=== PATIENT | female | born 1995 | race African-American/Black ===

== ENCOUNTER 2016-10-13 17:19 | Emergency (ER) | payer OTHER ==
[~2016-10-13] VITALS: Ht 170.2 cm; Wt 53.2 kg
[2016-10-13 17:26] VITALS: BP 127/81; PULSE 89; TEMP 37.3; O2SAT 99; Ht 170.2 cm; Wt 53.2 kg
--- NOTE | 2016-10-13 18:47 | EMERGENCY ROOM VISIT NOTE ---
History First contact with patient: 17:34 Chief Complaint: OTHER COMPLAINT Stated Complaint: BURNING SCALP, HAIR LOSS History of Present Illness The patient is a 20 year old female who presents to the Emergency Room with complaints of hair loss over the past few weeks. The patient reports a burning and itching sensation on her scalp. 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 She denies using any new hair products recently. She denies any prior history of eczema or other significant skin conditions. She does report having a prior history of hair loss several years ago. The patient does not know if she has insurance, and currently does not have a PCP. Review of Systems 10 system review was performed and was negative except for pertinent positives and negatives as indicated in history of present illness Past Medical/Surgical History Medical Problems: (1) Diffus Cystic Mastopathy Surgical Problems: (1) No history of previous surgery Family History FH: cancer FH: diabetes mellitus FH: heart disease Social History Smoking Status: Never Smoker Alcohol Use: none Drug Use: none Marital Status: single Housing Status: lives with family Occupation Status: student Current/Historical Medications No Active Prescriptions or Reported Meds Allergies Coded Allergies: No Known Allergies (Unverified , 10/13/16) Physical Exam Vital Signs Date Time Temp Pulse Resp B/P Pulse Ox O2 Delivery O2 Flow Rate FiO2 10/13/16 17:26 37.3 89 17 127/81 99 Room Air Pain Rating (0-10): 0 Physical Exam CONSTITUTIONAL: Healthy and well nourished. Alert and oriented X 3 with positive affect. HEENT: Normocephalic, atraumatic. Pupils equal, round and reactive. Examination of the scalp does not show any notable scalp edema, erythema or scaling. She has a couple patches behind both ears. There does not appear to be any facial rash. Ears and nares are clear. OROPHARYNX: No posterior pharyngeal erythema, tonsillar hypertrophy or exudates. NECK: Full active range of motion without discomfort. LYMPHATICS: No cervical chain adenopathy. RESPIRATORY: Clear to auscultation bilaterally with no wheezing, crackles, rhonchi or stridor. CARDIOVASCULAR: Regular rate and rhythm with no murmurs, rubs or gallops. INTEGUMENTARY: No other rashes or other significant dermatologic conditions noted except as indicated in the previous HEENT section. NEUROLOGIC: No focal neurologic deficits noted. Medical Decision & Procedures ED Course Patient history and physical exam were performed. Nurse's notes were reviewed. The patient was encouraged to follow-up with a diesel locomotive engineer for further workup. Regarding the patient's insurance, she was encouraged to speak with her parents and have them contact their insurance provider as the patient likely is covered under her parents insurance. She was also encouraged to find out if she needs a referral to see a diesel locomotive engineer. She was provided contact information for Dr. Pisano that she may also call if her insurance is accepted at [facility]. The patient was happy with plan care, and voiced understanding of all discharge instructions. Medical Decision Impression Primary Impression: Hair loss Departure Information Dispostion Home / Self-Care Condition GOOD Prescriptions No Active Prescriptions or Reported Meds Referrals Brandyn Pisano M.D. Forms HOME CARE DOCUMENTATION FORM, IMPORTANT VISIT INFORMATION Patient Instructions A Signature Page, My [facility] Additional Instructions Check with your parents insurance as you are likely covered under their insurance plan. Have them call the insurance plan to see if you need a referral to a diesel locomotive engineer. If you do, he will have to follow-up with your family doctor for this referral. If not, you may contact a diesel locomotive engineer directly.
== END 2016-10-13 17:58 | disposition home or self-care (01) ==
LOC: C.EDB 17:20 → C.EDD 17:58
DX: L65.9 Nonscarring hair loss, unspecified (principal)

== ENCOUNTER 2017-06-16 14:56 | Emergency (ER) | payer OTHER ==
[~2017-06-16] VITALS: Ht 170.2 cm; Wt 58.4 kg
[2017-06-16 14:58] VITALS: TEMP 37.2; Ht 170.2 cm; Wt 58.4 kg
[2017-06-16] MEDS ORDERED: ONDANSETRON INJ 2 MG/ML 2 ML VIAL IV STA (15:20)
[2017-06-16] MEDS ORDERED: SODIUM CHLORIDE 0.9% 1000ML 1,000 ML IV STA (15:20)
[2017-06-16 15:37] LABS: URINE APPEARANCE CLOUDY (CLEAR); URINE BILIRUBIN NEG (NEG); URINE COLOR YELLOW; URINE EPITHELIAL CELL AUTO >30 /lpf (0-5); URINE NITRITE NEG (NEG); URINE PH 5.5 (4.5-7.5); URINE SPECIFIC GRAVITY 1.017 (1.000-1.030); UROBILINOGEN NEG (NEG)
[2017-06-16 15:45] LABS: BASO % 0.1 %; BASO ABS # 0.01 K/uL (0-0.2); COMPLETE YES; EOS % 0.5 %; HEMATOCRIT 41.1 % (37-47); IG% 0.1 %; LYMPH % 22.1 %; LYMPH ABS # 1.61 K/uL (1.2-3.4); MEAN CELL VOLUME 98.1 fL (80-100); MEAN CORPUSCULAR HEMOGLOBIN 31.7 pg (25-34); MEAN CORPUSCULAR HGB CONC 32.4 g/dl (32-36); MEAN PLATELET VOLUME 8.5 fL (7.4-10.4); MONO % 5.9 %; NEUT % 71.3 %; PLATELET COUNT 315 K/uL (130-400); RED BLOOD COUNT 4.19 M/uL (4.2-5.4)
[2017-06-16 15:45] LABS: MANUAL MICROSCOPIC REQUIRED? NO; REVIEW REQ? NO
[2017-06-16 16:08] LABS: CALCIUM 8.8 mg/dl (8.5-10.1); CREATININE 0.78 mg/dl (0.60-1.20); POTASSIUM 3.3 mmol/L (3.5-5.1)
[2017-06-16 16:10] LABS: PREG INTERNAL NEGATIVE QC NEG CLEAR BACKGROUND; PREG INTERNAL POSITIVE QC POS CONTROL LINE
[2017-06-16] MEDS ORDERED: ONDA4TAB46 PO (16:41)
[2017-06-16 17:01] VITALS: BP 125/53; PULSE 80; O2SAT 100
--- NOTE | 2017-06-17 00:42 | EMERGENCY ROOM VISIT NOTE ---
ED Visit Note First contact with patient: 15:02 Chief Complaint: I have been sick to my stomach all weekend yesterday and started vomiting. History of Present Illness: Ms. Cope is a 21-year-old black female who ambulates into the ED accompanied by male friend complaining of nausea and vomiting. Patient denies any previous significant gastrointestinal diseases or abdominal surgeries. Patient reports she has been nauseated for the last 5 days and yesterday she had 3 episodes of vomiting. Today she continues to be nauseated but had no additional episodes of vomiting. She felt this was related to eating out too much and the recent past. She has not identified any aggravating or alleviating factors related to her nausea. She has not taken any medications for nausea prior to arrival at the hospital. Associated with her nausea she reports that she is having lightheadedness and she is noted breast soreness that typically goes along with her menstrual cycle. She does report she had a normal menstrual cycle in May. She does report intermittently she was irregular but her last scheduled menstrual cycle was last week and it has not started. She denies fevers, chills, sweats, headaches, recent head trauma, neck pain, stiffness, chest pain, shortness of breath, cough, wheezing, abdominal pain, diarrhea, constipation, rectal bleeding, black/tarry stools, urinary symptoms, hematuria, vaginal bleeding, vaginal discharge, flank pain. Review of Systems: As noted above in history of present illness. All body systems were reviewed and found to be negative as noted above. Past Medical History: Patient denies. Current Medications: Patient denies. Allergies to Medications: Patient denies. Social History: Patient is currently employed; she feels safe in her home environment; she denies tobacco use and admits to social alcohol use. Physical Examination: Vital Signs: Date Time Temp Pulse Resp B/P (MAP) Pulse Ox O2 Delivery O2 Flow Rate FiO2 06/16/17 17:01 80 16 125/53 100 06/16/17 15:53 78 06/16/17 14:58 37.2 84 16 117/81 100 Room Air GENERAL: 21-year-old female in mild distress due to symptoms, nontoxic-appearing , afebrile and hemodynamically stable. NEUROLOGICAL: Awake, alert and oriented to person, place and time. Answering questions appropriately and following commands. Normal gait. Good hand eye coordination. No focal motor or sensory deficits. SKIN: Warm, dry and pink. No soft tissue eruptions or trauma noted. HEENT: Atraumatic and normocephalic. PERRLA. Sclera white and conjunctiva pink. No drainage from naris. Oral cavity moist and pink. Pharynx is nonerythematous or edematous. Speech normal. No lymphadenopathy. Trachea midline. No jugular venous distention. BACK: No tenderness over the bony spine. No CVA tenderness. THORAX: Lungs sounds are clear to auscultation and equal bilaterally with symmetrical chest wall. No wheezing, rales or rhonchi. No crepitus, tenderness , subcutaneous air or deformities noted. HEART: Regular rate and rhythm. No gallops, rubs or murmurs are appreciated. ABDOMEN: Flat, soft and nontender. Positive bowel sounds in all quadrants. No guarding, rigidity or organomegaly. EXTREMITIES: Moves all extremities well on command and with purpose. All distal neurovascular statuses are intact and equal bilaterally. No calf tenderness or cords. ED Course: Patient is assessed as noted above. Patient's medication list was reviewed. Laboratory Testing: Test 06/16/17 15:06 06/16/17 15:35 Range/Units Urine Color YELLOW Urine Appearance CLOUDY CLEAR Urine pH 5.5 4.5-7.5 Urine Specific [place] 1.017 1.000-1.030 Urine Protein NEG NEG Urine Glucose (UA) NEG NEG Urine Ketones 1+ NEG Urine Occult Blood NEG NEG Urine Nitrite NEG NEG Urine Bilirubin NEG NEG Urine Urobilinogen NEG NEG Urine Leukocyte Esterase LARGE NEG Urine WBC (Auto) 10-30 0-5 /hpf Urine RBC (Auto) 0-4 0-4 /hpf Urine Hyaline Casts (Auto) 1-5 0-5 /lpf Urine Epithelial Cells (Auto) >30 0-5 /lpf Urine Bacteria (Auto) 1+ NEG White Blood Count 7.30 4.8-10.8 K/uL Red Blood Count 4.19 4.2-5.4 M/uL Hemoglobin 13.3 12.0-16.0 g/dL Hematocrit 41.1 37-47 % Mean Corpuscular Volume 98.1 80-100 fL Mean Corpuscular Hemoglobin 31.7 25-34 pg Mean Corpuscular Hemoglobin Concent 32.4 32-36 g/dl Platelet Count 315 130-400 K/uL Mean Platelet Volume 8.5 7.4-10.4 fL Neutrophils (%) (Auto) 71.3 % Lymphocytes (%) (Auto) 22.1 % Monocytes (%) (Auto) 5.9 % Eosinophils (%) (Auto) 0.5 % Basophils (%) (Auto) 0.1 % Neutrophils # (Auto) 5.20 1.4-6.5 K/uL Lymphocytes # (Auto) 1.61 1.2-3.4 K/uL Monocytes # (Auto) 0.43 0.11-0.59 K/uL Eosinophils # (Auto) 0.04 0-0.5 K/uL Basophils # (Auto) 0.01 0-0.2 K/uL RDW Standard Deviation 43.4 36.4-46.3 fL RDW Coefficient of Variation 12.2 11.5-14.5 % Immature Granulocyte % (Auto) 0.1 % Immature Granulocyte # (Auto) 0.01 0.00-0.02 K/uL Sodium Level 136 136-145 mmol/L Potassium Level 3.3 3.5-5.1 mmol/L Chloride Level 106 98-107 mmol/L Carbon Dioxide Level 27 21-32 mmol/L Anion Gap 3.0 3-11 mmol/L Blood Urea Nitrogen 7 7-18 mg/dl Creatinine 0.78 0.60-1.20 mg/dl Est Creatinine Clear Calc Drug Dose 104.3 ml/min Estimated GFR () 125.1 Estimated GFR (Non- 107.9 BUN/Creatinine Ratio 9.0 10-20 Random Glucose 74 70-99 mg/dl Calcium Level 8.8 8.5-10.1 mg/dl Total Bilirubin 0.5 0.2-1 mg/dl Direct Bilirubin 0.1 0-0.2 mg/dl Aspartate Amino Transf (AST/SGOT) 20 15-37 U/L Alanine Aminotransferase (ALT/SGPT) 20 12-78 U/L Alkaline Phosphatase 51 45-117 U/L Total Protein 7.6 6.4-8.2 gm/dl Albumin 3.4 3.4-5.0 gm/dl Lipase 188 73-393 U/L Human Chorionic Gonadotropin, Qual POS NEG Patient was reassessed multiple times during her stay in the emergency department. Patient's case was reviewed with Dr. Casas; we agreed on diagnostic approach, treatment, disposition and plan. Patient was educated about today's findings and instructed on her treatment plan ; she verbalizes understanding and agreement with this plan. Clinical Impression: Nausea and vomiting. Positive test. Decision-Making: Initially my differential diagnosis I considered pneumonia, pancreatitis, gastritis, gastroenteritis, , and other causes. Disposition: Patient discharged home in stable condition accompanied by male friend; prior to departure she was reassessed and subjectively reported she was feeling much better and had resolution of nausea and no additional episodes of vomiting while in the emergency department. Plan: Patient was prescribed Zofran and instructed on achieves. Patient is encouraged use 650 mg of acetaminophen every 6 hours as needed for pain and to avoid ibuprofen and Aleve. Patient was encouraged to stay well-hydrated with increased clear fluids. Patient was encouraged to use OTC multivitamin with iron. Patient was encouraged to follow-up with Dr. mcadams, dressing room attendant for definitive care and treatment. Patient was encouraged return ED for worsening/uncontrolled nausea/vomiting, vaginal bleeding, fevers or any new/concerning symptoms.
== END 2017-06-16 17:02 | disposition home or self-care (01) ==
LOC: C.EDB 14:58 → C.EDC 17:02
DX: R11.2 Nausea with vomiting, unspecified (principal); Z32.01 Encounter for pregnancy test, result positive

== ENCOUNTER 2017-07-21 12:31 | Emergency (ER) | payer OTHER ==
[~2017-07-21] VITALS: Ht 170.2 cm; Wt 57.7 kg
[~2017-07-21 12:31] MED LIST: ONDA4TAB46 PO
[2017-07-21 12:34] VITALS: TEMP 37.4; Ht 170.2 cm; Wt 57.7 kg
[2017-07-21 13:09] LABS: BASO % 0.3 %; BASO ABS # 0.02 K/uL (0-0.2); COMPLETE YES; EOS % 0.8 %; HEMATOCRIT 39.2 % (37-47); IG% 0.2 %; LYMPH % 21.3 %; LYMPH ABS # 1.31 K/uL (1.2-3.4); MEAN CORPUSCULAR HEMOGLOBIN 32.9 pg (25-34); MEAN CORPUSCULAR HGB CONC 33.9 g/dl (32-36); MEAN PLATELET VOLUME 8.4 fL (7.4-10.4); MONO % 8.3 %; NEUT % 69.1 %; PLATELET COUNT 305 K/uL (130-400); RED BLOOD COUNT 4.04 M/uL (4.2-5.4); WHITE BLOOD COUNT 6.16 K/uL (4.8-10.8)
[2017-07-21 13:14] VITALS: O2SAT 97
[2017-07-21 13:17] LABS: PROTHROMBIN TIME (PATIENT) 10.4 SECONDS (9.0-12.0)
[2017-07-21 13:27] LABS: BUN/CREATININE RATIO 7.2 (10-20); CALCIUM 9.1 mg/dl (8.5-10.1); CREATININE 0.61 mg/dl (0.60-1.20); POTASSIUM 3.9 mmol/L (3.5-5.1)
[2017-07-21 13:29] LABS: ALB/GLOB RATIO 0.9 (0.9-2)
[2017-07-21 13:42] LABS: MANUAL MICROSCOPIC REQUIRED? YES; URINE APPEARANCE CLEAR (CLEAR); URINE BILIRUBIN NEG (NEG); URINE COLOR YELLOW; URINE NITRITE NEG (NEG); UROBILINOGEN NEG (NEG)
[2017-07-21 13:44] LABS: REVIEW REQ? NO
--- NOTE | 2017-07-21 13:51 | DIAGNOSTIC IMAGING REPORT ---
<14 WKS SINGLE, PELVIC ULTRASOUND CLINICAL HISTORY: LMP 2 months ago, vaginal bleeding, spotting COMPARISON STUDY: None. FINDINGS: Transabdominal scanning of the fetus was performed. There is a single viable intrauterine gestation demonstrating a heart rate of 165 bpm. The crown-rump length is 4.34 cm consistent with an 11 week and 1 day fetus. There is a 5 mm yolk sac. The cervix appears closed. There is a developing anterior placenta. No significant subchorionic hematoma. Normal bilateral ovaries. IMPRESSION: Single viable 11 week and 1 day intrauterine gestation demonstrating a heart rate of 165 bpm. Electronically signed by: Jose Miller M.D. 07/21/2017 1:49 PM Dictated Date/Time: 07/21/2017 1:46 PM
--- NOTE | 2017-07-21 13:56 | EMERGENCY ROOM VISIT NOTE ---
History Report prepared by Jigna: Onofre Cullen Under the Supervision of: Dr. Cecil Griffith M.D. First contact with patient: 12:37 Chief Complaint: ED VAG BLEEDING Stated Complaint: VAG. BLEEDING W/-UNSURE OF # OF WKS. PREG History of Present Illness The patient is a 21 year old black female who presents to the ED with a cc of constant vaginal bleeding beginning two hours ago. Had positive test one month ago, but unsure how far along she is. LNMP was two months ago. Describes current bleeding as "dark" and "light bleeding". This is her first . She has not had an ultrasound. Positive vomiting daily. Scheduled to see OBGYN in five days. Previously on Zofran but recently ran out. No recent drug or alcohol use. Had sexual intercourse this morning, but bleeding started a little before this. Denies recent trauma. She denies easily bruising or other bleeding. Source of History: patient Onset: two hours ago Position: other (vagina) Quality: other (bleeding) Timing: constant Associated Symptoms: + vomiting Review of Systems See HPI for pertinent positives and negatives. A total of ten systems were reviewed and were otherwise negative. Past Medical & Surgical Medical Problems: (1) Diffus Cystic Mastopathy Surgical Problems: (1) No history of previous surgery Family History FH: cancer FH: diabetes mellitus FH: heart disease Social History Smoking Status: Never Smoker Alcohol Use: none Drug Use: none Marital Status: single Housing Status: lives with family Occupation Status: student Current/Historical Medications Scheduled Ondasetron Odt (Zofran Odt), 4 MG SL Q6H Allergies Coded Allergies: No Known Allergies (Unverified , 07/21/17) Physical Exam Vital Signs Date Time Temp Pulse Resp B/P (MAP) Pulse Ox O2 Delivery O2 Flow Rate FiO2 07/21/17 14:46 94 16 118/66 98 07/21/17 14:34 100 07/21/17 14:26 87 16 98 Room Air 07/21/17 13:14 82 16 97 Room Air 07/21/17 13:14 97 Room Air 07/21/17 12:34 37.4 90 18 111/66 97 Room Air Physical Exam GENERAL: Awake, alert, well-appearing, NAD HENT: Normocephalic, atraumatic. EYES: Normal conjunctiva. Sclera non-icteric. NECK: Supple. No nuchal rigidity. FROM. RESPIRATORY: CTAB, no rhonchi, wheezing, crackles CARDIAC: RRR, no MRG ABDOMEN: Soft, NTND, BS+ : Vaginal exam deferred for ultrasound. MSK: No chest wall TTP, no LE edema NEURO: GCS 15, CN 2-12 intact, moves all 4s on command SKIN: No rash or jaundice noted. No petechiae or bruising noted. Medical Decision & Procedures ER Provider Diagnostic Interpretation: Radiology results as stated below per my review and radiologist interpretation: <14 WKS SINGLE, PELVIC ULTRASOUND FINDINGS: Transabdominal scanning of the fetus was performed. There is a single viable intrauterine gestation demonstrating a heart rate of 165 bpm. The crown-rump length is 4.34 cm consistent with an 11 week and 1 day fetus. There is a 5 mm yolk sac. The cervix appears closed. There is a developing anterior placenta. No significant subchorionic hematoma. Normal bilateral ovaries. IMPRESSION: Single viable 11 week and 1 day intrauterine gestation demonstrating a heart rate of 165 bpm. Electronically signed by: Jose Miller M.D. 07/21/2017 1:49 PM Laboratory Results 07/21/17 12:52 Red Blood Count 4.04, Mean Corpuscular Volume 97.0, Mean Corpuscular Hemoglobin 32.9, Mean Corpuscular Hemoglobin Concent 33.9, Mean Platelet Volume 8.4, Neutrophils (%) (Auto) 69.1, Lymphocytes (%) (Auto) 21.3, Monocytes (%) (Auto) 8.3, Eosinophils (%) (Auto) 0.8, Basophils (%) (Auto) 0.3, Neutrophils # (Auto) 4.26, Lymphocytes # (Auto) 1.31, Monocytes # (Auto) 0.51, Eosinophils # (Auto) 0.05, Basophils # (Auto) 0.02 07/21/17 12:52 Test 07/21/17 12:52 07/21/17 13:10 White Blood Count 6.16 K/uL (4.8-10.8) Red Blood Count 4.04 M/uL (4.2-5.4) Hemoglobin 13.3 g/dL (12.0-16.0) Hematocrit 39.2 % (37-47) Mean Corpuscular Volume 97.0 fL (80-100) Mean Corpuscular Hemoglobin 32.9 pg (25-34) Mean Corpuscular Hemoglobin Concent 33.9 g/dl (32-36) Platelet Count 305 K/uL (130-400) Mean Platelet Volume 8.4 fL (7.4-10.4) Neutrophils (%) (Auto) 69.1 % Lymphocytes (%) (Auto) 21.3 % Monocytes (%) (Auto) 8.3 % Eosinophils (%) (Auto) 0.8 % Basophils (%) (Auto) 0.3 % Neutrophils # (Auto) 4.26 K/uL (1.4-6.5) Lymphocytes # (Auto) 1.31 K/uL (1.2-3.4) Monocytes # (Auto) 0.51 K/uL (0.11-0.59) Eosinophils # (Auto) 0.05 K/uL (0-0.5) Basophils # (Auto) 0.02 K/uL (0-0.2) RDW Standard Deviation 43.8 fL (36.4-46.3) RDW Coefficient of Variation 12.3 % (11.5-14.5) Immature Granulocyte % (Auto) 0.2 % Immature Granulocyte # (Auto) 0.01 K/uL (0.00-0.02) Prothrombin Time 10.4 SECONDS (9.0-12.0) Prothromb Time International Ratio 1.0 (0.9-1.1) Activated Partial Thromboplast Time 25.4 SECONDS (21.0-31.0) Partial Thromboplastin Ratio 1.0 Anion Gap 6.0 mmol/L (3-11) Est Creatinine Clear Calc Drug Dose 131.8 ml/min Estimated GFR () 149.1 Estimated GFR (Non- 128.7 BUN/Creatinine Ratio 7.2 (10-20) Calcium Level 9.1 mg/dl (8.5-10.1) Total Bilirubin 0.3 mg/dl (0.2-1) Aspartate Amino Transf (AST/SGOT) 15 U/L (15-37) Alanine Aminotransferase (ALT/SGPT) 16 U/L (12-78) Alkaline Phosphatase 47 U/L (45-117) Total Protein 8.0 gm/dl (6.4-8.2) Albumin 3.7 gm/dl (3.4-5.0) Globulin 4.3 gm/dl (2.5-4.0) Albumin/Globulin Ratio 0.9 (0.9-2) Human Chorionic Gonadotropin, Quant 64158 mIU/mL Urine Color YELLOW Urine Appearance CLEAR (CLEAR) Urine pH 8.0 (4.5-7.5) Urine Specific [place] 1.010 (1.000-1.030) Urine Protein NEG (NEG) Urine Glucose (UA) NEG (NEG) Urine Ketones NEG (NEG) Urine Occult Blood 2+ (NEG) Urine Nitrite NEG (NEG) Urine Bilirubin NEG (NEG) Urine Urobilinogen NEG (NEG) Urine Leukocyte Esterase TRACE (NEG) Urine RBC 0-4 /hpf (0-4) Urine WBC 1-5 /hpf (0-5) Urine Epithelial Cells >30 /lpf (0-5) Urine Bacteria NEG (NEG) Laboratory results reviewed by me ED Course 1243: The patient was evaluated in room C7. A complete history and physical exam was performed. 1430: I reevaluated the patient. Discussed results and discharge instructions: she verbalized understanding and agreement. The patient is ready for discharge. Medical Decision The patient is a 21 year old black female who presents to the ED with a cc of constant vaginal bleeding beginning two hours ago. Differential diagnosis includes etiologies such as ectopic , dysfunction uterine bleeding, bleeding dyscrasia, trauma, infection, as well as others were entertained. Patient was seen and evaluated at the bedside. Patient's LMP was approximately 2 months ago this is her first . Patient did state that she had sexual intercourse this morning but believe that her bleeding began prior to that this morning around 10 or 11:00. Patient denies any trauma. Patient is very well-appearing denies any lightheadedness or dizziness. Patient does not take any blood thinning medications. Patient denies any prior history of bleeding disorders, or easy bruising or bleeding. Patient does not have a family history of miscarriages. Patient states that she had a positive test approximately 1 month prior but is not had any ultrasound that documents a single IUP. Patient appears very well on exam does not complain of any pain or nausea. Patient had blood work as well as a transvaginal ultrasound completed. US results: Single viable 11 week and 1 day intrauterine gestation demonstrating a heart rate of 165 bpm. Patient Rh + does not need Rhogam. patient US does not show subchorionic hemorrhage. Patient informed of findings. Patient does have f/u w/ woodenware assembler. Spoke w/ woodenware assembler. Agree / Wednesday f/u. Patient given f/u, d/c, and return precautions and d/c'ed to home. Medication Reconcilliation Current Medication List: was personally reviewed by me Blood Pressure Screening Patient's blood pressure: Normal blood pressure Blood pressure disposition: Did not require urgent referral Consults Time Called: 1422 Consulting Physician: Dr. Swathi QUINTANA Returned Call: 1422 Discussed the patient's case. Dr. Echevarria agrees with the treatment plan and recommends outpatient follow-up. Impression Primary Impression: Vaginal bleeding Scribe Attestation The scribe's documentation has been prepared under my direction and personally reviewed by me in its entirety. I confirm that the note above accurately reflects all work, treatment, procedures, and medical decision making performed by me. Departure Information Dispostion Home / Self-Care Prescriptions Ondasetron Odt (ZOFRAN ODT) 4 Mg Tab 4 MG SL Q6H for Nausea, #6 TAB Prov: Cecil Griffith M.D. 07/21/17 Referrals No Doctor, Assigned (PCP) Patient Instructions ED Bleed Irregular Vaginal, My [facility] Additional Instructions Please return to the emergency department if you have worsening or recurrent symptoms not amenable to at-home treatment. Please call for a follow-up appointment with her primary care physician. Please take your medications as prescribed. If you have other concerns and/or complaints please feel free to also call your primary care physician's office or return the ED for further evaluation, management, and treatment. You may take tylenol 1000mg every 6 hours as needed for pain. You may take zofran for nausea. You can also consider benadryl for nausea. Please keep your woodenware assembler appointment. Your gestational age of your child by 1st trimester ultrasound is 11weeks and 1 day. You have been examined and treated today on an emergency basis only. This is not a substitute for, or an effort to provide, complete comprehensive medical care. It is impossible to recognize and treat all injuries or illnesses in a single emergency department visit. It is therefore important that you follow up closely with [facility]. Call as soon as possible for an appointment. Thank you for your time and consideration. I look forward to speaking with you again soon. Please don't hesitate to call us if you have any questions.
[2017-07-21 14:00] LABS: URINE RBC 0-4 /hpf (0-4)
[2017-07-21 14:01] LABS: URINE BACTERIA NEG (NEG)
[2017-07-21] MEDS ORDERED: ONDA4TAB10 SL (14:27)
[2017-07-21 14:46] VITALS: BP 118/66; PULSE 94; O2SAT 98
== END 2017-07-21 14:49 | disposition home or self-care (01) ==
LOC: C.EDB 12:32 → C.EDC 14:49
DX: O20.8 Other hemorrhage in early pregnancy (principal); Z3A.11 11 weeks gestation of pregnancy; N60.19 Diffuse cystic mastopathy of unspecified breast; Z83.3 Family history of diabetes mellitus

== ENCOUNTER 2017-10-06 02:23 | Emergency (ER) | payer OTHER ==
[~2017-10-06] VITALS: Ht 170.2 cm; Wt 59.7 kg
[~2017-10-06 02:23] MED LIST changes: +ONDA4TAB10 SL; -ONDA4TAB46 PO
[2017-10-06 02:25] VITALS: TEMP 36.4; Ht 170.2 cm; Wt 59.7 kg
[2017-10-06 02:51] VITALS: BP 109/62
[2017-10-06 03:03] VITALS: PULSE 73; O2SAT 99
[2017-10-06 03:07] LABS: BASO % 0.2 %; BASO ABS # 0.02 K/uL (0-0.2); COMPLETE YES; EOS % 0.7 %; HEMATOCRIT 33.8 % (37-47); IG% 0.1 %; LYMPH % 30.3 %; LYMPH ABS # 2.52 K/uL (1.2-3.4); MEAN CELL VOLUME 96.3 fL (80-100); MEAN CORPUSCULAR HEMOGLOBIN 33.6 pg (25-34); MEAN CORPUSCULAR HGB CONC 34.9 g/dl (32-36); MEAN PLATELET VOLUME 8.4 fL (7.4-10.4); MONO % 7.1 %; NEUT % 61.6 %; PLATELET COUNT 236 K/uL (130-400); RED BLOOD COUNT 3.51 M/uL (4.2-5.4); WHITE BLOOD COUNT 8.31 K/uL (4.8-10.8)
--- NOTE | 2017-10-06 03:28 | EMERGENCY ROOM VISIT NOTE ---
History First contact with patient: 02:36 Chief Complaint: ABDOMINAL PAIN Stated Complaint: 22WKS PREG-CALLED L+D,LOWER ABD PAIN-EVAL IN ER Nursing Triage Summary: Bilateral lower quadrant abdominal pain for an hour, no other symptoms. 22 weeks preganant. History of Present Illness The patient is a 21 year old female who presents to the Emergency Room with complaints of lower abdominal pain for the past one hour. The patient reports that the pain has been intermittent and spreads across her lower abdomen. She is approximately 22 weeks . She has been following with [facility] INST[facility]. She denies any complications of this . She states that this is her first . She denies any similar symptoms. She rates her discomfort an 8/10. She denies any bleeding or vaginal discharge. She denies any urinary symptoms, nausea or vomiting. Review of Systems A complete 10 point review of systems was reviewed with the patient with pertinent positives and negatives as per history of present illness. All else were negative. Past Medical/Surgical History Medical Problems: (1) Diffus Cystic Mastopathy (2) Hair loss (3) Hypokalemia (4) Premature labor after 22 weeks gestation (5) Vaginal discharge Surgical Problems: (1) No history of previous surgery Family History FH: cancer FH: diabetes mellitus FH: heart disease Social History Smoking Status: Never Smoker Alcohol Use: none Drug Use: none Marital Status: single Housing Status: lives with family Occupation Status: student Current/Historical Medications No Active Prescriptions or Reported Meds Physical Exam Vital Signs Date Time Temp Pulse Resp B/P (MAP) Pulse Ox O2 Delivery O2 Flow Rate FiO2 10/06/17 03:03 73 99 10/06/17 02:58 72 99 10/06/17 02:53 72 22 99 Room Air 10/06/17 02:51 109/62 10/06/17 02:25 36.4 75 20 119/77 99 Room Air Physical Exam VITALS: Vitals are noted on the nurse's note and reviewed by myself. Vital signs stable. GENERAL: This is a 21-year-old female, in no acute distress, nondiaphoretic, well-developed well-nourished. HEART: Regular rate and rhythm without murmurs gallops or rubs. LUNGS: Clear to auscultation bilaterally without wheezes, rales or rhonchi. ABDOMEN: Positive bowel sounds x 4. Fundal height normal for reported gestational age. Mild lower abdominal tenderness. No guarding or rebound tenderness. NEURO: Patient was alert and oriented to person place and time. Medical Decision & Procedures ER Provider Diagnostic Interpretation: US OB 2ND TRIMESTER: The cervix is open and shortened. Vaginal cavity is distended with fluid. Single intrauterine with heart rate of 157 bpm. The fetus is in the break position with one of the feet extending through the open cervix. Anterior placenta without evidence of previa. Radiologist: Monika Ervin MD Laboratory Results 10/06/17 02:55 Red Blood Count 3.51, Mean Corpuscular Volume 96.3, Mean Corpuscular Hemoglobin 33.6, Mean Corpuscular Hemoglobin Concent 34.9, Mean Platelet Volume 8.4, Neutrophils (%) (Auto) 61.6, Lymphocytes (%) (Auto) 30.3, Monocytes (%) (Auto) 7.1, Eosinophils (%) (Auto) 0.7, Basophils (%) (Auto) 0.2, Neutrophils # (Auto) 5.11, Lymphocytes # (Auto) 2.52, Monocytes # (Auto) 0.59, Eosinophils # (Auto) 0.06, Basophils # (Auto) 0.02 10/06/17 02:55 Test 10/06/17 02:55 White Blood Count 8.31 K/uL (4.8-10.8) Red Blood Count 3.51 M/uL (4.2-5.4) Hemoglobin 11.8 g/dL (12.0-16.0) Hematocrit 33.8 % (37-47) Mean Corpuscular Volume 96.3 fL (80-100) Mean Corpuscular Hemoglobin 33.6 pg (25-34) Mean Corpuscular Hemoglobin Concent 34.9 g/dl (32-36) Platelet Count 236 K/uL (130-400) Mean Platelet Volume 8.4 fL (7.4-10.4) Neutrophils (%) (Auto) 61.6 % Lymphocytes (%) (Auto) 30.3 % Monocytes (%) (Auto) 7.1 % Eosinophils (%) (Auto) 0.7 % Basophils (%) (Auto) 0.2 % Neutrophils # (Auto) 5.11 K/uL (1.4-6.5) Lymphocytes # (Auto) 2.52 K/uL (1.2-3.4) Monocytes # (Auto) 0.59 K/uL (0.11-0.59) Eosinophils # (Auto) 0.06 K/uL (0-0.5) Basophils # (Auto) 0.02 K/uL (0-0.2) RDW Standard Deviation 43.0 fL (36.4-46.3) RDW Coefficient of Variation 12.3 % (11.5-14.5) Immature Granulocyte % (Auto) 0.1 % Immature Granulocyte # (Auto) 0.01 K/uL (0.00-0.02) Anion Gap 7.0 mmol/L (3-11) Est Creatinine Clear Calc Drug Dose 143.4 ml/min Estimated GFR () > 150.0 Estimated GFR (Non- 130.8 BUN/Creatinine Ratio 13.1 (10-20) Calcium Level 8.8 mg/dl (8.5-10.1) Total Bilirubin 0.2 mg/dl (0.2-1) Direct Bilirubin < 0.1 mg/dl (0-0.2) Aspartate Amino Transf (AST/SGOT) 17 U/L (15-37) Alanine Aminotransferase (ALT/SGPT) 17 U/L (12-78) Alkaline Phosphatase 51 U/L (45-117) Total Protein 7.0 gm/dl (6.4-8.2) Albumin 2.9 gm/dl (3.4-5.0) Lipase 245 U/L (73-393) Medical Decision Differential diagnosis includes labor, [place] contractions, urinary tract infection, appendicitis, kidney stone, gastroenteritis, among others. The patient was evaluated as above. Labor and delivery requested that she be evaluated in the emergency department prior to being sent to L&D. The patient has had lower abdominal cramping for 1 hour. She denied any vaginal bleeding or discharge from the vagina. The patient was sent to ultrasound and I immediately received a call from the cutter grind tool technician who reported that the patient's cervix was open and a foot was protruding through the cervix. OB/ LIFE INSURANCE SALES AGENT was immediately consulted and patient was sent to labor and delivery for evaluation of labor. The patient was independently evaluated by Dr. Marinelli, ED attending physician, who agreed with my assessment and treatment plan. She accompanied the patient to L&D. Medication Reconcilliation Current Medication List: was personally reviewed by me Blood Pressure Screening Patient's blood pressure: Normal blood pressure Impression Primary Impression: labor in second trimester Departure Information Prescriptions No Active Prescriptions or Reported Meds Referrals No Doctor, Assigned (PCP) Patient Instructions My [facility] Health Problem Qualifiers Primary Impression: labor in second trimester Fetus number: single or unspecified fetus
[2017-10-06 03:38] LABS: BLOOD UREA NITROGEN 8 mg/dl (7-18); CALCIUM 8.8 mg/dl (8.5-10.1); CARBON DIOXIDE 24 mmol/L (21-32); CHLORIDE 104 mmol/L (98-107); GLUCOSE 99 mg/dl (70-99); POTASSIUM 3.3 mmol/L (3.5-5.1); SODIUM 135 mmol/L (136-145)
[2017-10-06 03:50] LABS: ALKALINE PHOSPHATASE 51 U/L (45-117); ALT/SGPT 17 U/L (12-78); AST/SGOT 17 U/L (15-37); BUN/CREATININE RATIO 13.1 (10-20); CREATININE 0.58 mg/dl (0.60-1.20)
--- NOTE | 2017-10-06 05:28 | EMERGENCY ROOM VISIT NOTE ---
ED Visit Note First contact with patient: 02:36 The PA to discuss the case with me. Ultrasound contacted her stating that the patient had a dilated cervix on ultrasound with a foot in the vaginal canal. The patient was brought back to the emergency department immediately. I did a quick vaginal exam with a sterile glove. I noted the amniotic sac was bulging from the vagina with a foot present. The patient was immediately transferred to labor and delivery escorted by myself. She continued to have contractions at up approximately every 2-3 minutes. She was able to breathe through these and not push. I discussed the case with Dr. Damon on L&D.
[2017-10-06] MEDS ORDERED: FERR1TAB23 (05:50)
[2017-10-06] MEDS ORDERED: PRENTAB26 PO (05:50)
--- NOTE | 2017-10-06 06:50 | DIAGNOSTIC IMAGING REPORT ---
LIMITED (US) CLINICAL HISTORY: 22 wks , lower abd cramping pain. Nausea. TECHNIQUE: Ultrasound COMPARISON STUDY: 07/21/2017 FINDINGS: The thoracic cervix is open. Considerable fluid is noted within the vaginal cavity. Fetus is present within the intrauterine canal with a positive heartbeat of 157 bpm. Fetus is breech. 1 leg extends through the open cervix. Placenta is anterior with no evidence for placenta previa. IMPRESSION: 1. The cervix is distended, and widely patent, with amniotic fluid extending to a distended fluid-filled vaginal canal. 2. A single, viable intrauterine is noted with 1 foot extending through the cervical canal to the vaginal vault. 3. Anterior placenta 4. A heartbeat is confirmed. Fetus is breech in presentation The above report was generated using voice recognition software. It may contain grammatical, syntax or spelling errors. Electronically signed by: Brandyn Elias M.D. 10/06/2017 6:49 AM Dictated Date/Time: 10/06/2017 6:46 AM
== END 2017-10-06 03:20 | disposition still patient (30) ==
LOC: C.EDB 02:23 → C.EDA 03:20
DX: O60.02 Preterm labor without delivery, second trimester (principal); Z3A.22 22 weeks gestation of pregnancy; Z82.49 Family history of ischemic heart disease and other diseases of the circulatory system; Z83.3 Family history of diabetes mellitus

== ENCOUNTER 2017-10-06 03:26 | Inpatient (IN) | payer OTHER ==
[~2017-10-06] VITALS: Ht 170.2 cm; Wt 61.4 kg
[2017-10-06] MEDS ORDERED: OXYTOCIN 30 UNITS/500ML NSS IV ONE (03:43)
[2017-10-06] MEDS ORDERED: LACTATED RINGER'S 1000ML 1,000 ML IV SCH (03:58)
[2017-10-06] MEDS ORDERED: OXYTOCIN 30 UNITS/500ML NSS IV SCH (04:00)
[2017-10-06 04:28] LABS: HEMATOCRIT 33.2 % (37-47); MEAN CELL VOLUME 97.1 fL (80-100); MEAN CORPUSCULAR HEMOGLOBIN 33.9 pg (25-34); MEAN PLATELET VOLUME 8.6 fL (7.4-10.4); PLATELET COUNT 229 K/uL (130-400); RED BLOOD COUNT 3.42 M/uL (4.2-5.4); WHITE BLOOD COUNT 6.45 K/uL (4.8-10.8)
[2017-10-06 04:41] LABS: MEAN CORPUSCULAR HGB CONC 34.9 g/dl (32-36)
[2017-10-06] MEDS ORDERED: MISOPROSTOL 200 MCG TAB PR SCH (05:00)
[2017-10-06] MEDS ORDERED: FERR1TAB23 (05:50)
[2017-10-06] MEDS ORDERED: PRENTAB26 PO (05:50)
[2017-10-06 05:58] VITALS: Ht 170.2 cm; Wt 61.4 kg
[2017-10-06] MEDS ORDERED: IBUPROFEN 600 MG TAB PO PRN (07:15)
[2017-10-06] MEDS ORDERED: ACETAMINOPHEN/CODEINE 300/30MG TAB PO PRN ×2 (07:15)
[2017-10-06] MEDS ORDERED: HYDROCORTISONE ACETATE 25 MG SUPP PR PRN (07:15)
[2017-10-06] MEDS ORDERED: SUPERCREAM 0.870 % 15GM JAR EXT PRN (07:15)
[2017-10-06] MEDS ORDERED: BENZOCAINE 20% AER SPR 82.5 GM CAN EXT PRN (07:15)
[2017-10-06] MEDS ORDERED: OXYTOCIN 30 UNITS/500ML NSS IV PRN (07:15)
[2017-10-06] MEDS ORDERED: ACETAMINOPHEN 325 MG TAB PO PRN (07:15)
[2017-10-06] MEDS ORDERED: LANOLIN OINT EXT PRN ×2 (07:15)
--- NOTE | 2017-10-06 07:54 | HISTORY & PHYSICAL EXAMINATION ---
DATE OF ADMISSION: 10/06/2017 ADMITTING DIAGNOSES: 1. Complicated at 22 weeks' gestational age. 2. Premature labor. ADMISSION HISTORY: The patient is a 21-year-old 1, para 0 with an EDC of 08 February at 22 weeks by first trimester ultrasound, who presents to labor and delivery from the Emergency Room with premature labor. The patient had intercourse earlier this evening. She began to develop lower abdominal cramping. She presented to the Emergency Room for evaluation, where ultrasound showed the cervix to be dilated and parts in the lower uterine segment and the patient was brought to labor and delivery for evaluation. The patient has had no care of this . She was seen in July of this year with first trimester bleeding. At that point, she had an ultrasound at 11 weeks, dating the for an EDC of 08 February. The patient was told to establish care, but never kept an appointment. She states that she has been taking vitamins. The patient states that she has had no leaking of fluid or vaginal bleeding or problems prior to presenting to the Emergency Room. PAST MEDICAL HISTORY: OBSTETRICAL: As above. GYNECOLOGICAL: None. MEDICAL: None. SURGICAL: None. ALLERGIES: No known drug allergies. SOCIAL HISTORY: No smoking. FAMILY HISTORY: Noncontributory. REVIEW OF SYSTEMS: As per HPI. ADMISSION PHYSICAL EXAMINATION: GENERAL: Shows a thin -Greek female in no acute distress. VITAL SIGNS: Blood pressure of 110/70 and a temp of 98. HEENT EXAMINATION: Unremarkable. NECK: Supple. LUNGS: Clear. HEART: With a regular rhythm and rate. ABDOMEN: Gravid with the fundus at the umbilicus. Positive heart tones. Positive palpable contractions. PELVIC: Examinations show membranes at the introitus. EXTREMITIES: Show no deep calf tenderness. IMPRESSION: A 21-year-old 1, para 0 at 22 weeks gestational age with an inevitable second trimester miscarriage. PLAN: On arrival on labor and delivery, the patient's membranes were at the introitus and she had an uncontrollable urge to push. Pediatrics was contacted and the patient began to bear down with the contractions. The entire membranes prolapsed through the introitus with then spontaneous rupture of membrane of clear nonfoul-smelling fluid. Gentle digital examination at this point shows parts in the upper vagina protruding through the cervix. The cervix is approximately 5 cm dilated. After rupture of membranes, the patient is not feeling any contractions at all. The inevitable nature of the second trimester loss has been explained to the patient. Pediatrics have discussed with the patient the nonviability of the . With the inevitable loss of the , contractions must be initiated. Cytotec 200 mcg will be placed rectally every 4 hours to induce contractions. We will have pediatrics present for delivery or for evaluation of the baby. All questions answered of the patient.
[2017-10-06] MEDS ORDERED: PRENATAL VITAMIN TAB PO SCH (08:00)
[2017-10-06] MEDS ORDERED: FERROUS SULFATE 325 MG TAB PO SCH (08:00)
[2017-10-06] MEDS ORDERED: DOCUSATE SODIUM 100 MG CAP PO SCH (08:00)
--- NOTE | 2017-10-06 08:16 | DELIVERY SUMMARY ---
DATE OF OPERATION: 10/06/2017 FINDINGS: Nonviable female delivered over an intact perineum with umbilical cord attached. Baby passed off to pediatrics who is in attendance for the delivery. Estimated blood loss 300 mL. LABOR NOTE: The patient is a 21-year-old 1, para 0 at 22+ weeks' gestational age, who presented to labor and delivery from an emergency room in active labor without care. Please see admission H&P for details. The patient received Cytotec 200 mcg rectally and approximately 2 hours later, began to have cramping and pain. The patient went onto the labor with a nonviable female along with the placenta intact. Baby was taken over to the resuscitation stand where she was evaluated by pediatrics and having Apgars of 0 and 0. Bladder drained on the patient in a sterile fashion of 500 mL of urine. Intact perineum. Estimated blood loss 300 mL. I attest to the content of the Intraoperative Record and any orders documented therein. Any exception s are noted below.
--- NOTE | 2017-10-06 12:38 | Discharge Instructions ---
Discharge Instructions Date of Service Oct 06, 2017. Admission Reason for Admission: Premature Labor After 22 Weeks Gestation Discharge Discharge Diagnosis / Problem: demise Discharge Goals Goal(s): Improve function Activity Recommendations Activity Limitations: per Instructions/Follow-up section . Instructions / Follow-Up Instructions / Follow-Up . ACTIVITY RECOMMENDATIONS: * Vaginal rest (no tampons, douching, intercourse) until after doctor 's visit. * control as discussed with doctor. * Wear a bra for 24 hours/day for comfort. SPECIAL CARE INSTRUCTIONS: Medications: * vitamins, one tablet daily. Continue taking until prescription is complete. Call you doctor if: * Temperature greater than or equal to 100.4 degrees F or 38.0 degrees C. * Bleeding becomes heavier than the heaviest part of your period - saturating a sanitary pad within an hour. * Passing large clots. * Unrelieved pain. * Bleeding has a foul smelling odor. * Signs and symptoms of phlebitis: leg pain, warm, red or swollen area on leg. incision has increased pain, redness, swelling, presence of any drainage, or if the incision starts to open up. FOLLOW UP VISIT: If appointment is not already scheduled: Please call doctor's office to schedule a follow-up appointment. Current Hospital Diet Patient's current hospital diet: Regular OB Diet Discahrge Diet Recommended Diet: Regular Diet Pending Studies Studies pending at discharge: no Medical Emergencies . Who to Call and When: Medical Emergencies: If at any time you feel your situation is an emergency, please call 911 immediately. . Non-Emergent Contact Non-Emergency issues call your: Optical Fabrication Technician . . "Provider Documentation" section prepared by Kadeem Brown. . VTE Core Measure Inpt VTE Proph given/why not?: Treatment not indicated
[2017-10-07] MEDS ORDERED: BISACODYL 5 MG TABEC PO SCH (20:00)
[2017-10-08 23:37] LABS: HERPES SIMPLEX AB IGG-2 < 0.90 INDEX (< 0.90)
[2017-10-13 12:28] LABS: HSV1 AB IGM Negative (Negative); HSV2 AB IGM Negative (Negative); TOXOPLASMA GONDII IGM <8.00 AU/mL (<8.00)
== END 2017-10-06 14:20 | disposition home or self-care (01) | DRG 775 ==
LOC: C.OPB 03:26 → C.LD 03:26 → C.OPB 04:03
PROVIDERS: ADMIT Obstetrics & Gynecology; ATTEND Obstetrics & Gynecology
PROC: 10E0XZZ Delivery of Products of Conception, External Approach (ICD-10-PCS; principal; 2017-10-06)
DX: O60.12X0 Preterm labor second trimester with preterm delivery second trimester, not applicable or unspecified (principal); O09.33 Supervision of pregnancy with insufficient antenatal care, third trimester; Z3A.22 22 weeks gestation of pregnancy; Z37.1 Single stillbirth

== ENCOUNTER → 2017-10-21 | Outpatient (CLI) | payer OTHER ==
[~2017-10-21] MED LIST changes: +FERR1TAB23; -ONDA4TAB10 SL; +PRENTAB26 PO
== END | disposition home or self-care (01) ==
LOC: C.LABSPEC 13:38
PROVIDERS: ATTEND Obstetrics & Gynecology
DX: Z39.2 Encounter for routine postpartum follow-up (principal)

== ENCOUNTER → 2017-10-21 | Outpatient (CLI) | payer OTHER | END | disposition home or self-care (01) | LOC: C.PAPS 13:49 | PROVIDERS: ATTEND Obstetrics & Gynecology | DX: Z12.4 Encounter for screening for malignant neoplasm of cervix (principal) ==

== ENCOUNTER 2024-06-12 04:01 | Observation (INO) ==
[2024-06-12] MEDS: OXYTOCIN 30 UNITS/NSS 30 UNITS/500 ML BAG IV PRN (04:30)
[2024-06-12] MEDS ORDERED: LIDOCAINE 1% LOCAL 20 ML VIAL INFIL PRN (04:42)
[2024-06-12] MEDS ORDERED: LACTATED RINGER'S 1,000 ML IV PRN (04:42)
[2024-06-12] MEDS ORDERED: OXYTOCIN 30 UNITS/NSS 30 UNITS/500 ML BAG IV PRN (04:42)
--- NOTE | 2024-06-12 05:02 | History & Physical Report ---
Date of Service June 12, 2024 Assessment & Plan (1) labor: Plan: Patient active labor patient refused heart tones but on arrival there was a presenting foot umbilical cord and placenta through the introitus. Baby was subsequently delivered in breech position see vaginal delivery note baby was not alive on delivery. 22 weeks clinically. History of Present Illness Primary Care Provider: NO PCP Unassigned patient called by nursing as patient presented by ambulance and presented to labor and delivery from home as quickly as it could patient was unassigned and approximately 22 weeks she has had very minimal care if none she has been seen in the emergency room before. Patient reports a sudden onset of pain and then bleeding and discharge called the ambulance and presented here. Patient has a complicated history with at least 1 documented 22-week demise and she says she has had another 1 the documented one was in 2017 and delivered at our hospital Patient was scheduled to see [place] as she was going to have a termination of this but she says she does tend to lose her pregnancies in the second trimester. Patient states that she is homeless she states she has no medical problems takes no medication Allergies Allergy/AdvReac Type Severity Reaction Status Date / Time No Known Allergies Allergy Unverified 05/05/21 16:29 Patient History Medical History No pertinent past medical history No pertinent family history Surgical History No pertinent past surgical history Family History (Updated 06/12/24 @ 04:20 by Aviva Magallon RN) Mother Lupus Social History Smoking Status: Current some day smoker Tobacco Type: Cigarettes Preferred Language: Turkmen Feels Safe at Home: Hesitant to Answer Physical Exam Constitutional: WD/WN, vitals as above well developed and well nourished Respiratory: normal respiratory effort, lungs clear to auscultation normal respiratory effort Cardiovascular: RRR, no murmur, no edema Gastrointestinal (Abdomen): normal bowel sounds, soft, nontender, no hepatosplenomegaly Coding Level of Care Code None Diagnoses labor O60.00
--- NOTE | 2024-06-12 05:03 | Delivery Summary ---
Vaginal Delivery Summary Date of Service June 12, 2024 Vaginal Delivery Summary TWILA (22 wk demise) Arrived at bedside placenta cord and foot was in the vagina protruding through the introitus gowned and gloved I was able to grasp the foot and then half with maternal expulsive efforts push and she was able to deliver the body and then the head. Fetus was not alive no heartbeat was confirmed. Placenta was then expulsed I felt it was exposed Schwarz a gentle bimanual exam failed to reveal any further tissue in the cervix. There was no tearing noted whole process took only a short period of time. After delivery IV Pitocin was started uterine tone improved and bleeding improved Sponge and instrument counts correct QBL 300 mL [facility] Vaginal Delivery Charge Delivery Type Details: TWILA (22 wk demise)
[2024-06-12 05:14] LABS: Hematocrit (blood only) 27.8 % (37.0-47.0); Hemoglobin 9.3 g/dl (12.0-16.0); Mean Corpuscular Hemoglobin 32.4 pg (25.0-34.0); Mean Corpuscular Hgb Conc 33.5 g/dL (32.0-36.0); Mean Corpuscular Volume 96.9 fL (80.0-100.0); Mean Platelet Volume 8.6 fL (9.4-12.4); Platelet Count 317 K/uL (130-400); RDW Standard Deviation 42.7 fL (36.4-46.3); Red Blood Count 2.87 M/uL (4.20-5.40); White Blood Count 10.32 K/ul (4.8-10.8)
[2024-06-12] MEDS ORDERED: BENZOCAINE 20% SPRY 85 APPLN/85 GM CAN EXT PRN (05:25)
[2024-06-12] MEDS ORDERED: HYDROCORTISONE ACETATE 25 MG SUPP PR PRN (05:25)
[2024-06-12] MEDS ORDERED: IBUPROFEN 600 MG TAB PO PRN (05:25)
[2024-06-12] MEDS ORDERED: bisacodyL 10 MG SUPP PR PRN (05:25)
[2024-06-12] MEDS: ACETAMINOPHEN 325 MG TAB PO PRN (05:33)
[2024-06-12] MEDS: DIPHTHER/TETAN/PERTUS Vaccine (Tdap, Adol/Adult) 0.5mL IM ONE (06:16)
[2024-06-12 06:32] LABS: Rubella IgG Ab Immune (Immune); Rubella IgG Qnt 23.9 IU/mL
[2024-06-12 08:25] LABS: Amphetamines+Metham, Urine Neg (Neg); Barbiturates, Urine Neg (Neg); Benzodiazepine, Urine Neg (Neg); Cocaine, Urine Neg (Neg); Fentanyl, Urine Neg (Neg); MDMA (Ecstacy), Urine Neg (Neg); Marijuana, Urine Pos (Neg); Methadone, Urine Neg (Neg); Opiate, Urine Neg (Neg); Phencyclidine, Urine Neg (Neg)
[2024-06-12] MEDS: PRENATAL VITAMIN 1 TAB PO SCH (11:00)
[2024-06-12] MEDS: DOCUSATE SODIUM 100 MG CAP PO SCH (11:00)
[2024-06-12 15:52] VITALS: BP 110/73; PULSE 97
[2024-06-12 16:19] VITALS: RESP 18; TEMP 98.6
[2024-06-13] MEDS ORDERED: bisacodyL 5 MG TABEC PO SCH (20:00)
[2024-06-14 10:02] LABS: HIV 4th Gen(HIV 1,2 AB+p24 Ag Negative (Negative)
[2024-06-14 10:09] LABS: Hep B Surface Ag with confirm Negative (Negative)
[2024-06-14 10:13] LABS: Hep C Ab Rflx HepCQuant RNA Negative (Negative)
[2024-06-15 12:43] LABS: Marijuana Quant, GCMS Urine 272 ng/mL (<5)
== END 2024-06-12 18:00 | disposition home or self-care (01) ==
LOC: OPB 04:01 → 4S1 04:06 → INTOOBSV 04:44